=== PATIENT | male | born 1945 | race Caucasian/White ===

== ENCOUNTER 2019-07-24 21:54 | Inpatient (IN) | payer OTHER ==
[~2019-07-24] VITALS: Ht 190.5 cm; Wt 118.4 kg
[2019-07-24 21:55] VITALS: BP 178/86
[2019-07-24] MEDS ORDERED: COZAAR 25 MG TA25 M1 PO (22:03)
[2019-07-24] MEDS ORDERED: METFORMIN HCL500 M3 PO (22:04)
[2019-07-24] MEDS ORDERED: KAPSPARGO SPRIN50 MG PO (22:05)
[2019-07-24] MEDS ORDERED: ELIQUIS5 MG PO (22:06)
[2019-07-24] MEDS ORDERED: FISH OIL 1,0001 EAC9 PO (22:06)
[2019-07-24] MEDS ORDERED: SIMVASTATIN80 MG PO (22:07)
[2019-07-24] MEDS ORDERED: ASA81BEC PO (22:07)
[2019-07-24] MEDS ORDERED: FENOFIBRATE150 MG PO (22:07)
[2019-07-24 23:04] LABS: ABSOLUTE BASOPHILS 0.1 thou/uL (0.0-0.2); ABSOLUTE EOSINOPHILS 0.2 thou/uL (0.0-0.7); ABSOLUTE LYMPHOCYTES 2.4 thou/uL (0.8-5.3); ABSOLUTE MONOCYTES 0.8 thou/uL (0.0-1.2); ABSOLUTE NEUTROPHILS 5.4 thou/uL (1.6-8.1); BASOPHILS 0.6 %; EOSINOPHILS 2.6 %; HEMATOCRIT 44.7 % (42.0-52.0); HEMOGLOBIN 15.3 gm/dL (14.0-18.0); LYMPHOCYTES 27.3 %; MCH 30.8 pg (26.0-34.0); MCHC 34.2 g/dL (28.0-37.0); MCV 90.2 fL (80.0-100.0); MONOCYTES 8.9 %; MPV 9.8 fl. (7.2-11.1); NUCLEATED RBCS 0 /100WBC; PLATELET COUNT* 274 thou/uL (150-400); POLYS 60.6 %; RBC 4.96 mil/uL (4.50-6.00); RDW-CV 13.7 % (10.5-14.5); WBC 8.9 thou/uL (4.0-11.0)
[2019-07-24 23:09] LABS: CALCIUM 9.7 mg/dL (8.5-10.1); CREATININE 1.5 mg/dL (0.6-1.3); POTASSIUM 4.5 mmol/L (3.5-5.1)
[2019-07-24 23:12] LABS: URINE BILIRUBIN NEGATIVE (Negative); URINE BLOOD NEGATIVE (Negative); URINE CLARITY CLEAR; URINE COLOR YELLOW; URINE GLUCOSE-RANDOM 1+ (Negative); URINE KETONES NEGATIVE (Negative); URINE LEUKOCYTES-REFLEX NEGATIVE (Negative); URINE NITRITE-REFLEX NEGATIVE (Negative); URINE PROTEIN NEGATIVE (Negative); URINE SPECIFIC GRAVITY <= 1.005 (1.005-1.030); URINE UROBILINOGEN 0.2 E.U./dl (0.2-1.0)
[2019-07-24 23:14] LABS: ALBUMIN 4.2 g/dL (3.4-5.0); TOTAL BILIRUBIN 0.4 mg/dL (<0.1-1.0); TOTAL PROTEIN 8.3 g/dL (6.4-8.2)
[2019-07-24 23:17] LABS: PROTIME 10.1 Seconds (9.20-11.50)
[2019-07-25 02:28] VITALS: BP 154/80
[2019-07-25 02:35] VITALS: BP 156/84
--- NOTE | 2019-07-25 05:05 | NUR ---
PATIENT PROGRESSING TOWARDS GOALS: NIH REMAINS 0. PATIENT DENIES PAIN AND DISCOMFORT. PATIENT RESTING WITH EYES CLOSED AT THIS TIME. CALL LIGHT WITHIN REACH
[2019-07-25 08:55] VITALS: BP 160/78
[2019-07-25] MEDS ORDERED: LANTUS SUBQ (09:01)
[2019-07-25] MEDS ORDERED: HUMALOG100 UNIT/1 SUBQ (09:02)
--- NOTE | 2019-07-25 11:44 | EKG ---
[place] [address] ELECTROCARDIOGRAM REPORT Name: SHELLI COLBERT Room: [address] ADM IN .R.#: [id number] Admission: 07/25/19 Attend Phys: Soni Gomez Discharge: Date of : 47 Report #: [id number] THIS REPORT FOR: //name// [facility] ED Test Date: 2019-07-24 Test Time: 22:06:28 Pat Name: SHELLI COLBERT Department: Room: [facility] Gender: M Saturator: : 1945 Requested By: Juliane Rangel Order Number: [id number] MD: Rainer Liz Measurements Intervals [place] Rate: 72 P: 44 [place]: 187 QRS: -38 QRSD: 148 T: 18 QT: 432 QTc: 473 Interpretive Statements Sinus rhythm Right bundle branch block No previous ECG available for comparison Electronically Signed On 07-25-2019 11:44:08 STORE MGR by Rainer Liz [email or web address] <ELECTRONICALLY SIGNED> By: Julia Liz MD, [facility] 07/25/19 1144 05 05 Julia Liz MD, [facility] /EPI
[2019-07-25 12:00] VITALS: BP 163/79
[2019-07-25 15:17] LABS: AMP/METHAMP Negative (Negative); BARBITURATES Negative (Negative); BENZODIAZEPINES Negative (Negative); COCAINE Negative (Negative); METHADONE Negative (Negative); OPIATES Negative (Negative); PCP Negative (Negative); THC Negative (Negative)
[2019-07-25 16:00] VITALS: BP 163/84
[2019-07-25 18:31] VITALS: BP 163/84
== END 2019-07-25 18:58 | disposition home or self-care (01) | DRG 69 ==
LOC: M.ERS 21:54 → M.TBA-ER 07-25 00:50 → M.2W 07-25 01:56
PROVIDERS: Personal Emergency Response Attendant; ADMIT Family Medicine
DX: G45.9 Transient cerebral ischemic attack, unspecified (principal); I48.20 Chronic atrial fibrillation, unspecified; D68.69 Other thrombophilia; I10 Essential (primary) hypertension; E11.649 Type 2 diabetes mellitus with hypoglycemia without coma; I25.10 Atherosclerotic heart disease of native coronary artery without angina pectoris; E11.40 Type 2 diabetes mellitus with diabetic neuropathy, unspecified; E78.5 Hyperlipidemia, unspecified; Z79.01 Long term (current) use of anticoagulants; Z79.899 Other long term (current) drug therapy; Z95.1 Presence of aortocoronary bypass graft; Z86.73 Personal history of transient ischemic attack (TIA), and cerebral infarction without residual deficits; Z79.82 Long term (current) use of aspirin; Z79.84 Long term (current) use of oral hypoglycemic drugs; Z87.891 Personal history of nicotine dependence